=== PATIENT | female | born 1995 | race African-American/Black ===

== ENCOUNTER 2018-12-15 20:23 | Emergency (ER) | payer OTHER ==
[2018-12-15 23:03] LABS: ABS Eosinophils 0.3 10^3/ul (0-0.6); ABS Lymphocytes 2.5 10^3/ul (1.0-4.8); ABS Monocytes 0.6 10^3/ul (0-0.8); ABS Neutrophils 4.7 10^3/ul (1.5-7.7); Eosinophil % 4.1 %; Hematocrit 35 % (35-47); Hemoglobin 11.3 g/dL (12.0-16.0); Lymphocyte % 30.4 %; Mean Corpuscular HGB Conc 33 g/dL (31-36); Mean Corpuscular Hemoglobin 26 pg (27-31); Mean Corpuscular Volume 78 fL (80-97); Mean Platelet Volume 10.3 fL (7.4-10.4); Nucleated Red Blood Cells % 0.1; Platelet Count 211 10^3/uL (150-450); Red Blood Count 4.42 10^6 /uL (3.70-4.87); Red Cell Distribution Width 19 % (10-15); White Blood Count 8.2 10^3/uL (3.5-10.8)
[2018-12-16 01:04] LABS: Urine Appearance Clear; Urine Bilirubin Negative (Negative); Urine Blood Negative (Negative); Urine Color Straw; Urine Glucose Negative (Negative); Urine Ketones Negative (Negative); Urine Nitrite Negative (Negative); Urine Protein Negative (Negative); Urine Specific Gravity 1.009 (1.010-1.030); Urine Urobilinogen Negative (Negative)
--- NOTE | 2018-12-16 03:32 | ED ---
Abdominal Pain/Female - HPI Summary HPI Summary: Patient with history of positive home test complains of abdominal pain 5 days, chronic bilateral knee pain, back pain and feet swelling 2 weeks. Abdominal pain is intermittent, worse with physical activity. Denies fever, cough, sore throat, CP, SOB, N/V/D, change in urine, change in BM, vaginal discharge, vaginal pain, vaginal bleeding. LMP October 18 through October 21. . No HOUSEKEEPING SUPERVISOR, no prior ultrasound. Palm positive home test with unknown, . Medical history is none.In [place] 2 months. Abdominal surgical history 3. - History of Current Complaint Chief Complaint: EDOBProblems Stated Complaint: ABD PAIN, PER PT Time Seen by Provider: 12/16/18 00:02 Hx Obtained From: Patient Onset/Duration: Gradual Onset, Lasting Days Timing: Intermittent Episode Lasting Severity Initially: Moderate Severity Currently: Moderate Pain Intensity: 8 Pain Scale Used: 0-10 Numeric Location: Discrete At: RLQ, Discrete At: LLQ, Suprapubic Radiates: No Character: Cramping Aggravating Factor(s): Movement Alleviating Factor(s): Position Allergies/Adverse Reactions: Allergies Allergy/AdvReac Type Severity Reaction Status Date / Time No Known Allergies Allergy Verified 12/15/18 20:27 PMH/Surg Hx/FS Hx/Imm Hx Endocrine/Hematology History: Denies: Hx Anticoagulant Therapy Cardiovascular History: Denies: Hx Pacemaker/ICD History: Denies: Hx Dialysis Sensory History: Denies: Hx Eye Prosthesis Opthamlomology History: Denies: Hx Legally Blind EENT History: Denies: Hx Deafness Neurological History: Denies: Hx Developmental Delay Psychiatric History: Denies: Hx Autism Infectious Disease History: No Infectious Disease History: Denies: Traveled Outside the US in Last 30 Days - Family History Known Family History: Positive: Non-Contributory - Social History Alcohol Use: None Substance Use Type: Reports: None Smoking Status (MU): Never Smoked Tobacco Review of Systems Constitutional: Negative Eyes: Negative ENT: Negative Cardiovascular: Negative Respiratory: Negative Positive: Abdominal Pain Genitourinary: Negative Musculoskeletal: Other Skin: Negative Neurological: Negative Psychological: Normal All Other Systems Reviewed And Are Negative: Yes Physical Exam - Summary Physical Exam Summary: Mild tenderness to palpation in bilateral lower quadrants and suprapubically. Abdominal exam otherwise unremarkable. Lung sounds clear to auscultation bilaterally. RRR. No peripheral edema noted. No erythema, ecchymosis, deformity, swelling noted to bilateral lower extremities. Mild tenderness with palpation of bilateral knees. Bilateral calves soft nontender. Triage Information Reviewed: Yes Vital Signs On Initial Exam: Initial Vitals Temp Pulse Resp BP Pulse Ox 98.3 F 83 16 127/81 94 12/15/18 20:25 12/15/18 20:25 12/15/18 20:25 12/15/18 20:25 12/15/18 20:25 Vital Signs Reviewed: Yes Appearance: Positive: Well-Appearing Skin: Positive: Warm Head/Face: Positive: Normal Head/Face Inspection Eyes: Positive: Normal Neck: Positive: Supple Respiratory/Lung Sounds: Positive: Clear to Auscultation Cardiovascular: Positive: Normal Abdomen Description: Positive: Other: Musculoskeletal: Positive: Normal Neurological: Positive: Normal Psychiatric: Positive: Normal AVPU Assessment: Alert - Yadira Coma Scale Best Eye Response: 4 - Spontaneous Best Motor Response: 6 - Obeys Commands Best Verbal Response: 5 - Oriented Coma Scale Total: 15 Diagnostics - Vital Signs Vital Signs Temp Pulse Resp BP Pulse Ox 12/15/18 22:37 98.3 F 75 16 133/85 100 12/15/18 20:25 98.3 F 83 16 127/81 94 - Laboratory Lab Results: Lab Results 12/15/18 12/15/18 12/15/18 Range/Units 22:44 22:44 22:44 WBC 8.2 (3.5-10.8) 10^3/uL RBC 4.42 (3.70-4.87) 10^6 /uL Hgb 11.3 L (12.0-16.0) g/dL Hct 35 (35-47) % MCV 78 L (80-97) fL MCH 26 L (27-31) pg MCHC 33 (31-36) g/dL RDW 19 H (10-15) % Plt Count 211 (150-450) 10^3/uL MPV 10.3 (7.4-10.4) fL Neut % (Auto) 57.2 % Lymph % (Auto) 30.4 % [place] % (Auto) 7.8 % Eos % (Auto) 4.1 % Baso % (Auto) 0.5 % Absolute Neuts (auto) 4.7 (1.5-7.7) 10^3/ul Absolute Lymphs (auto) 2.5 (1.0-4.8) 10^3/ul Absolute Monos (auto) 0.6 (0-0.8) 10^3/ul Absolute Eos (auto) 0.3 (0-0.6) 10^3/ul Absolute Basos (auto) 0.0 (0-0.2) 10^3/ul Absolute Nucleated RBC 0.0 10^3/ul Nucleated RBC % 0.1 B-Natriuretic Peptide 72 (<=100) pg/mL Beta HCG, Quant 650.02 mIU/mL Urine Color Urine Appearance Urine pH (5-9) Ur Specific [place] (1.010-1.030) Urine Protein (Negative) Urine Ketones (Negative) Urine Blood (Negative) Urine Nitrate (Negative) Urine Bilirubin (Negative) Urine Urobilinogen (Negative) Ur Leukocyte Esterase (Negative) Urine Glucose (Negative) 12/16/18 Range/Units 00:55 WBC (3.5-10.8) 10^3/uL RBC (3.70-4.87) 10^6 /uL Hgb (12.0-16.0) g/dL Hct (35-47) % MCV (80-97) fL MCH (27-31) pg MCHC (31-36) g/dL RDW (10-15) % Plt Count (150-450) 10^3/uL MPV (7.4-10.4) fL Neut % (Auto) % Lymph % (Auto) % [place] % (Auto) % Eos % (Auto) % Baso % (Auto) % Absolute Neuts (auto) (1.5-7.7) 10^3/ul Absolute Lymphs (auto) (1.0-4.8) 10^3/ul Absolute Monos (auto) (0-0.8) 10^3/ul Absolute Eos (auto) (0-0.6) 10^3/ul Absolute Basos (auto) (0-0.2) 10^3/ul Absolute Nucleated RBC 10^3/ul Nucleated RBC % B-Natriuretic Peptide (<=100) pg/mL Beta HCG, Quant mIU/mL Urine Color Straw Urine Appearance Clear Urine pH 6.0 (5-9) Ur Specific [place] 1.009 L (1.010-1.030) Urine Protein Negative (Negative) Urine Ketones Negative (Negative) Urine Blood Negative (Negative) Urine Nitrate Negative (Negative) Urine Bilirubin Negative (Negative) Urine Urobilinogen Negative (Negative) Ur Leukocyte Esterase Negative (Negative) Urine Glucose Negative (Negative) Result Diagrams: 12/15/18 22:44 Lab Statement: Any lab studies that have been ordered have been reviewed, and results considered in the medical decision making process. Abdominal Pain Fem Course/Dx - Course Course Of Treatment: Patient with history of positive home test complains of abdominal pain 5 days, chronic bilateral knee pain, back pain and feet swelling 2 weeks. Abdominal pain is intermittent, worse with physical activity. Denies fever, cough, sore throat, CP, SOB, N/V/D, change in urine, change in BM, vaginal discharge, vaginal pain, vaginal bleeding. LMP October 18 through October 21. . No HOUSEKEEPING SUPERVISOR, no prior ultrasound. Palm positive home test with unknown, . Medical history is none.In [place] 2 months. Abdominal surgical history 3. Vital signs within normal limits. Labs unremarkable. HCG 650. Ultrasound positive for IUP at 5 week with no yolk sac or pole noted. Follow up with HOUSEKEEPING SUPERVISOR for . Follow-up with orthopedics for knee pain. Rx for Phenergan. Patient understands and approves of plan. - Diagnoses Provider Diagnoses: , Knee pain, bilateral Discharge - Sign-Out/Discharge Documenting (check all that apply): Patient Departure Patient Received Moderate/Deep Sedation with Procedure: No - Discharge Plan Condition: Stable Disposition: HOME Prescriptions: Promethazine TAB* [Phenergan TAB*] 25 mg PO Q8H PRN 7 Days #20 tab PRN Reason: Nausea Patient Education Materials: (ED), Knee Pain (ED) Referrals: No Primary Care Phys,NOPCP [Primary Care Provider] - Serg Winchester MD [Medical Doctor] - Johnny Allen MD [Medical Doctor] - Additional Instructions: Follow up with HOUSEKEEPING SUPERVISOR for further evaluation of . Take Tylenol for knee pain. Follow-up with orthopedics Dr. Allen for further evaluation of knee pain. Take vitamins. Return to the ED for any new or worsening symptoms. - Billing Disposition and Condition Condition: STABLE Disposition: Home
[2018-12-16 04:08] VITALS: BP 149/93
== END 2018-12-16 04:06 | disposition home or self-care (01) ==
LOC: ED 20:23
DX: O26.899 Other specified pregnancy related conditions, unspecified trimester (principal); R10.9 Unspecified abdominal pain; M25.561 Pain in right knee; M25.562 Pain in left knee; Z3A.00 Weeks of gestation of pregnancy not specified
CPT/HCPCS: 36415; 76817; 81003; 83880; 84702; 85025; 99282

== ENCOUNTER 2019-07-06 01:54 | Emergency (ER) | payer SELFPAY ==
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
[2019-07-06] MEDS ORDERED: NS 0.9% 1000 ML** 1,000 ML IV ONE (02:19)
[2019-07-06 02:52] LABS: ABS Lymphocytes 1.5 10^3/ul (1.0-4.8); ABS Monocytes 0.6 10^3/ul (0-0.8); Eosinophil % 0.3 %; Hematocrit 32 % (35-47); Lymphocyte % 14.4 %; Mean Corpuscular HGB Conc 34 g/dL (31-36); Mean Corpuscular Hemoglobin 28 pg (27-31); Mean Corpuscular Volume 81 fL (80-97); Mean Platelet Volume 9.3 fL (7.4-10.4); Platelet Count 261 10^3/uL (150-450); Red Blood Count 3.96 10^6 /uL (3.70-4.87); Red Cell Distribution Width 16 % (10-15); White Blood Count 10.2 10^3/uL (3.5-10.8)
[2019-07-06 02:57] LABS: INR 1.03 (0.82-1.09)
[2019-07-06 03:07] LABS: Albumin 3.2 g/dL (3.2-5.2); Albumin/Globulin Ratio 0.9 (1-3); BUN/Creatinine Ratio 13.5 (8-20); Calcium 8.7 mg/dL (8.6-10.3); EGFR African American 117.7 (>60); EGFR Non-African American 97.3 (>60); Globulin 3.6 g/dL (2-4); Potassium 3.9 mmol/L (3.5-5.0); Total Bilirubin 0.2 mg/dL (0.2-1.0); Total Protein 6.8 g/dL (6.4-8.9)
[2019-07-06 03:48] LABS: Urine Appearance Cloudy; Urine Bilirubin Negative (Negative); Urine Blood Negative (Negative); Urine Color Yellow; Urine Glucose Negative (Negative); Urine Ketones Negative (Negative); Urine Nitrite Negative (Negative); Urine Protein 1+(30 mg/dL) (Negative); Urine Specific Gravity 1.011 (1.010-1.030); Urine Urobilinogen Negative (Negative)
[2019-07-06 03:56] LABS: Urine Bacteria Absent (Absent); Urine Red Blood Cell Trace(0-2/hpf) (Absent); Urine Squamous Epithelial Cell Present (Absent); Urine White Blood Cell Trace(0-5/hpf) (Absent)
[2019-07-06] MEDS ORDERED: Acetaminophen TAB* 325 MG PO ONE (05:26)
[2019-07-06 05:34] VITALS: BP 119/71
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
== END 2019-07-06 05:33 | disposition home or self-care (01) ==
LOC: ED 01:54
DX: O26.893 Other specified pregnancy related conditions, third trimester (principal); R10.30 Lower abdominal pain, unspecified; B95.1 Streptococcus, group B, as the cause of diseases classified elsewhere; Z3A.33 33 weeks gestation of pregnancy; W18.39XA Other fall on same level, initial encounter; Y92.59 Other trade areas as the place of occurrence of the external cause
CPT/HCPCS: 36415; 80053; 81003; 81015; 85025; 85610; 87077; 87086; 96360; 96361; 99283; A9270-GY

== ENCOUNTER 2019-08-06 19:58 | Emergency (ER) | payer SELFPAY ==
--- NOTE | 2019-08-06 20:18 | ED ---
Medical Screening - HPI Summary HPI Summary: This pt is a 23 Y/O F presenting to [facility] with a CC of abdominal pain that is rated a 10/10 in severity. She states that the pain is persistent and has been for the last 5 days. She states that she is currently 37 weeks with a due date on 08/23/2019. She states that this is her 5th baby. She states that she has been having contractions with pressure and chest palpitations. She states that she thinks lost a little fluid after the onset. She states that the contractions/pain have been occurring less than 5 minutes apart. She has a GPA of 5,3,1. She has a PMHx of 3 C-sections. She has no alleviating or aggravating factors. - History of Current Complaint Chief Complaint: Jian Stated Complaint: L ABD PAIN/9 MONTHS PREG PER PT Time Seen by Provider: 08/06/19 20:10 Onset/Duration: Started Days Ago - 5, Still Present Severity: severe - 10/10 Associated Signs and Symptoms: Other - abdominal pain, contractions <5 minutes apart, chest palpitations, GPA (5,3,1) PMH/Surg Hx/FS Hx/Imm Hx Previously Healthy: Yes Endocrine/Hematology History: Denies: Hx Anticoagulant Therapy Cardiovascular History: Denies: Hx Pacemaker/ICD History: Denies: Hx Dialysis Sensory History: Denies: Hx Eye Prosthesis, Hx Legally Blind, Hx Deafness Opthamlomology History: Denies: Hx Eye Prosthesis, Hx Legally Blind Neurological History: Denies: Hx Developmental Delay Psychiatric History: Denies: Hx Autism - Cancer History Hx Chemotherapy: No Hx Radiation Therapy: No - Surgical History Surgical History: Yes Surgery Procedure, Year, and Place: c-sections - Immunization History Immunizations Up to Date: Yes Infectious Disease History: No Infectious Disease History: Denies: Traveled Outside the US in Last 30 Days - Family History Known Family History: Negative: Hypertension, Diabetes - Social History Occupation: Employed Part-time Lives: With Family Alcohol Use: None Hx Substance Use: No Substance Use Type: Reports: None Hx Tobacco Use: No Smoking Status (MU): Never Smoked Tobacco Review of Systems Positive: Palpitations Positive: Abdominal Pain All Other Systems Reviewed And Are Negative: Yes Physical Exam - Summary Physical Exam Summary: Constitutional: Well-developed, Well-nourished, Alert. (-) Distressed Skin: Warm, Dry HENT: Normocephalic; Atraumatic Eyes: Conjunctiva normal Neck: Musculoskeletal ROM normal neck. (-) JVD, (-) Stridor, (-) Nuchal rigidity Cardio: Rhythm regular, rate normal, Heart sounds normal; Intact distal pulses; Radial pulses are 2+ and symmetric. (-) Murmur Pulmonary/Chest wall: Effort normal. (-) Respiratory distress, (-) Wheezes, (-) Rales Abd: Soft, (-) tenderness, consistent with , (-) Guarding, (-) Rebound Musculoskeletal: (-) Edema Lymph: (-) Cervical adenopathy Neuro: Alert, Oriented x3 Psych: Mood and affect Normal Triage Information Reviewed: Yes Vital Signs On Initial Exam: Initial Vitals Temp Pulse Resp BP Pulse Ox 97.9 F 103 20 114/82 98 08/06/19 20:03 08/06/19 20:03 08/06/19 20:03 08/06/19 20:03 08/06/19 20:03 Vital Signs Reviewed: Yes Procedures - Sedation Patient Received Moderate/Deep Sedation with Procedure: No Diagnostics - Vital Signs Vital Signs Temp Pulse Resp BP Pulse Ox 08/06/19 20:03 97.9 F 103 20 114/82 98 - Laboratory Lab Statement: Any lab studies that have been ordered have been reviewed, and results considered in the medical decision making process. Course/Dx - Course Course Of Treatment: 23 y/o F at 37 weeks p/w lower abdominal pain. - VS mild tachycardia, NAD. No signs of active labor. - MSE completed w integrity engineer ipad (danish). D/w Dr. Winchester, send to OB - Diagnoses Provider Diagnoses: , Abdominal pain Discharge ED - Sign-Out/Discharge Documenting (check all that apply): Patient Departure - discharge - Discharge Plan Condition: Stable Disposition: HOME Patient Education Materials: (ED), Early Labor Signs (ED) [facility]errals: [facility] [Outside] - 2 Days Additional Instructions: Please go to OB floor. - Billing Disposition and Condition Condition: STABLE Disposition: Home - Attestation Statements Document Initiated by Scribe: Yes Documenting Scribe: Hosea Beal Provider For Whom Scribe is Documenting (Include Credential): Fred Archuleta MD Scribe Attestation: I, Hosea Beal, scribed for Fred Archuleta MD on 08/07/19 at 1014. Scribe Documentation Reviewed: Yes Provider Attestation: The documentation as recorded by the scribeHosea accurately reflects the service I personally performed and the decisions made by , Fred Archuleta MD Status of Scribe Document: Viewed
[2019-08-06 20:20] VITALS: BP 145/86
--- OUTSIDE RECORDS SUMMARY | 2019-08-06 20:20 | XMS REPORT ---
:1995 Author Organization [facility] Care Team Providers Name Role Phone SYLVAIN SPRAGUE Primary Care Physician Unavailable Allergies, Adverse Reactions, Alerts Allergy Code CodeSystem Reaction Severity Criticality Status Start Substance Date *No known unspecified Moderate Active 2019-06 allergies -28 Medications Medication Medication Medication Start Stop Route Dose Status Fill Code CodeSystem Date Date Instructions RxNorm 2019-06 oral 27 mg active Take 1 tablet Vitamin -28 iron- by mouth once 800 mcg a day as 1 tablet directed once a day Relevant diagnostic tests/laboratory data Narrative No Information Procedures Procedure Code CodeSystem Target Date of Status Service Device Device Device Name Site Procedure Delivery Code Name UID Location SNOMED-CT () 2019-07-[address], [id number] Encounters/Encounter Diagnoses Encounter Encounter Diagnosis Diagnosis Diagnosis Date of Service Name Code Code Name CodeSystem Diagnosis Delivery Location Non-Billable [address] SNOMED-CT 2019-07-21 [facility] , , Vital Signs No Information Social History Element Description Description Start End Code CodeSystem AdditionalInfo Date Date SexAssignedAtBirth Female F AdministrativeGender 10-12 Hospital Discharge Instructions Reason For Referral Medical Equipment FDA Assessments
== END 2019-08-06 20:32 | disposition home or self-care (01) ==
LOC: ED 19:58
DX: O26.893 Other specified pregnancy related conditions, third trimester (principal); Z3A.37 37 weeks gestation of pregnancy; R10.9 Unspecified abdominal pain; R00.2 Palpitations
CPT/HCPCS: 99283

== ENCOUNTER 2019-08-18 05:12 | Inpatient (IN) | payer MEDICAID ==
--- NOTE | 2019-08-17 17:08 | HP ---
General Information - Reason for Visit 23 y/o with a at 39+ weeks, Prior X 2, poor care. - General Information Maternal Age: 23 Grav: 6 Para: 2 SAB: 3 IEA: 0 Estimated Due Date: 08/20/19 Determined By: Early Ultrasound Gestational Age in Weeks/Days: 39 5/7 Maternal Blood Type and Rh: A Positive - Results this Serology/RPR Result: Non-Reactive Rubella Result: Immune HBsAg Result: Negative HIV Result: Negative Past Medical History Delivery History: Hx C/Section, See Records Pertinent Past Surgical History: See Records Pertinent Family History: See Records - Antepartal Records Antepartal Records: Reviewed, Complicated by: - Poor and sporadic prenantal care, Prior Section Review of Systems Constitutional: Comfortable CV Complaint: No Respiratory: Shortness of Breath: No Gastrointestinal: No Nausea/Vomiting, Normal Bowel Movement Genitourinary: No Dysuria, No Bleeding, No Leaking Fluid Musculoskeletal: No Complaint, No Epigastric Pain Neurological: No Headache, No Visual Changes Movement: Normal Exam Allergies/Adverse Reactions: Allergies No Known Allergies Allergy (Verified 08/16/19 14:44) Temp 98.7 P 84 BP 132/84 RR 20 - Measurements Height: 5 ft 3 in Weight: 222 lb 0.017 oz Weight in lbs: [phone] Body Mass Index (BMI): 39.3 Pre- Weight: 230 lb Weight Gained This : -7.998 lbs and -0.015 ozs - Exam Breast: Breast Exam Deferred CVA: No CVA Tenderness Extremities: No Edema Heart: Normal Rhythm/Heart Sounds HEENT: No Significant Findings Lungs: Clear Bilaterally Rectal: Rectal Exam Deferred Reflexes: DTR 2+ Thyroid: No Thyromegaly - Abdominal Exam Abdomen Exam: Non-Tender, Fundal Height Consistent with Dates - Ultrasound/Biophysical Profile Ultrasound Status: Not Done Targeted Exam Findings See L&D Outpatient Visit Provider Note for Findings: N/A Cervical Exam: Closed Effacement: 50% Station: -1 Presenting Part: Vertex Membrane Status: Intact EFM Findings - External Monitor Findings Baseline Heart Rate: 130 Contractions: None Assessment/Plan - Assessment Term , Prior X 2. - Obstetrical Risk Factors Obstetrical Risk Factors: GBS Positive, Obesity, Previous C/Section in Labor, Psychosocial Issues, Psychiatric Issues - Plan Plan: IV Hydration, Expedite C/S Delivery, Antibiotic Prophylaxis - Date/Time of Admission Date of Admission: 08/18/19 Time of Admission: 06:00
[~2019-08-18 05:12] MED LIST: Buffered Lidocaine 1% SYRIN* 1 ML/SYRINGE INTRADERM ONE; Lactated Ringers 1000 ML Bag* 1,000 ML IV SCH
--- OUTSIDE RECORDS SUMMARY | 2019-08-18 05:15 | XMS REPORT ---
:1995 Author Organization [facility] Care Team Providers Name Role Phone SYLVAIN [...] Name UID Location SNOMED-CT () 2019-07-[address], [id number] [phone] SNOMED-CT () 2019-08-[address], [address] [phone] Encounters/Encounter Diagnoses Encounter Encounter Diagnosis Diagnosis Diagnosis Date of Service Name Code Code Name CodeSystem Diagnosis Delivery Location Nursing [id number] SNOMED-CT 2019-08-05 [facility] [place] [facility] [address] [place] [address], [id number] Vital Signs No Information Social History Element Description Description Start End Code CodeSystem AdditionalInfo Date Date SexAssignedAtBirth Female F AdministrativeGender 10-12 Hospital Discharge Instructions Reason For Referral Medical Equipment FDA Assessments
[2019-08-18] MEDS ORDERED: Scopolamine 1.5 mg* PATCH TRANSDERM ONE (06:00)
[2019-08-18] MEDS ORDERED: Famotidine IV* 10 MG/ML 2 ML (20 mg) IV ONE (06:00)
[2019-08-18] MEDS ORDERED: ceFOXitin 2 GM IVPREMIX* 2 GM/50 ML BAG IVPB ONE (06:00)
[2019-08-18] MEDS ORDERED: Lactated Ringers 1000 ML Bag* 1,000 ML IV SCH ×2 (06:00→10:00)
[2019-08-18 07:25] LABS: Urine Benzodiazepine Screen None Detected (None Detect); Urine Opiates Screen None Detected (None Detect)
[2019-08-18] MEDS ORDERED: KETAMINE HCL* 50 MG/ML 10 ML VIAL ONE (07:31)
[2019-08-18] MEDS ORDERED: fentaNYL* 50 MCG/ML 2 ML VIAL (100 MCG VIAL) ONE (07:31)
[2019-08-18] MEDS ORDERED: Midazolam* 1 MG/ML 5 ML VIAL (5 MG) ONE (07:31)
[2019-08-18] MEDS ORDERED: Morphine PF AMP (0.5MG/ML)* 5 MG/10 ML AMP ONE (08:23)
[2019-08-18] MEDS ORDERED: Phenylephrine 10 MG/ML VIAL* 1 ML VIAL ONE (08:37)
[2019-08-18] MEDS ORDERED: Phenylephrine 40 MCG/ML SYRINGE ONE (08:37)
[2019-08-18] MEDS ORDERED: Ketorolac INJ* 30 MG/ML 1 ML VIAL ONE (08:38)
[2019-08-18] MEDS ORDERED: PROCHLORPERAZINE INJ 5 MG/ML 2 ML VIAL ONE (08:38)
[2019-08-18] MEDS ORDERED: Dexamethasone IV* 4 MG/ML 1 ML (4 MG) ONE (08:38)
[2019-08-18] MEDS ORDERED: EPHEDrine (Pressors)* 50 MG/ML VIAL ONE (08:38)
[2019-08-18] MEDS ORDERED: Ondansetron INJ* 2 MG/ML VIAL ONE (08:38)
[2019-08-18] MEDS ORDERED: oxyCODONE/Acetamin 5/325 MG* TAB PO PRN (08:50)
[2019-08-18] MEDS ORDERED: Naloxone* 0.4 MG/ML 1 ML VIAL IV PRN ×2 (08:50→08:56)
[2019-08-18] MEDS ORDERED: PROCHLORPERAZINE INJ 5 MG/ML 2 ML VIAL IV PRN (08:50)
[2019-08-18] MEDS ORDERED: Ondansetron INJ* 2 MG/ML VIAL IV PRN (08:50)
[2019-08-18] MEDS ORDERED: DiMENhydriNATE IV* 50 MG/ML VIAL IV PUSH PRN (08:50)
[2019-08-18] MEDS ORDERED: fentaNYL* 50 MCG/ML 2 ML VIAL (100 MCG VIAL) IV PRN (08:56)
[2019-08-18] MEDS ORDERED: Glycerin ADULT SUPP PR PRN (09:59)
[2019-08-18] MEDS ORDERED: Witch Hazel PAD* JAR TOPICAL PRN (09:59)
[2019-08-18] MEDS ORDERED: Zolpidem TAB* 5 MG PO PRN (09:59)
[2019-08-18] MEDS ORDERED: Dibucaine 1% 28.35 GM TUBE PR PRN (09:59)
[2019-08-18] MEDS: Simethicone TAB* 80 MG TAB.CHEW PO SCH ×3 (13:27→21:55)
[2019-08-18] MEDS: Docusate CAP* 100 MG PO SCH ×2 (13:27→21:55)
[2019-08-18] MEDS: Ketorolac INJ* 30 MG/ML 1 ML VIAL IV PRN (16:39)
[2019-08-19] MEDS: Ketorolac INJ* 30 MG/ML 1 ML VIAL IV PRN (00:04)
[2019-08-19] MEDS ORDERED: oxyCODONE TAB* 5 MG TAB PO PRN (00:26)
--- NOTE | 2019-08-19 03:35 | OP ---
CC: Dr. Agus Stein * DATE OF OPERATION: 08/18/19 - ROOM #117 DATE OF : 89 SURGEON: Lam Garcia MD FLASH DESIGNER: Dr. gAus Stein ANESTHESIA: Spinal. PRE-OP DIAGNOSIS: at 39 weeks with a prior section x2. POST-OP DIAGNOSIS: at 39 weeks with a prior section x2. OPERATIVE PROCEDURE: Repeat low transverse section. ESTIMATED BLOOD LOSS: 600 cc. SPECIMENS SENT TO PATHOLOGY: Cord blood. FLUIDS: She received 2300 cc of IV crystalloid fluid. URINE OUTPUT: Clear. FINDINGS: Delivery of a female infant with a nuchal cord x2 with a weight of 6 pounds and 5 ounces, Apgars of 8 and 9 over clear fluid. The uterus was noted to be missing the left fallopian tube. There was also a window at the left lateral broad ligament through which bowel was noted to herniate through. There was a normal left ovary, normal right tube and ovary, normal bowel and normal bladder. There were no complications. DESCRIPTION OF PROCEDURE: The patient was taken to the operating room where she was identified. She was placed on the operating table where a spinal anesthetic was obtained without difficulty. She was then placed in a supine position with a leftward tilt, prepped and draped in normal sterile fashion. A Pfannenstiel skin incision was then made with a knife and carried through to the underlying layer of fascia. The fascia was then nicked in the midline and extended laterally with curved Muñiz scissors. The fascia was then extended superiorly and inferiorly with Adams clamps, dissected out sharply from the rectus muscle and the rectus muscles were in the midline bluntly. The peritoneum was identified, grasped with pickups, entered sharply with Metzenbaum scissors, and extended superiorly and inferiorly sharply. A bladder blade was inserted into the patient's abdomen. A low uterine transverse incision was made with a knife and extended laterally with bandage scissors. The amniotic sac was ruptured. The 's head was then grasped and delivered atraumatically. A nuchal cord x2 was then reduced. The rest of the 's body was then delivered. The cord was clamped and cut, and the was handed off to awaiting cake puller. Cord bloods were obtained. The placenta was removed manually. The uterus was then exteriorized, cleared of all clot and debris using moist laparotomy sponges. The uterine incision was then closed using 0 Polysorb suture in a running locked fashion with a second imbricating layer of 0 Polysorb suture with good hemostasis noted. At this point, a window was noted at the left broad ligament just below the round ligament. Through this window, we noted that the bowel would herniate through, therefore, I appreciated to close this window using a 3-0 Polysorb suture in a running fashion without incident. The uterus was then returned to the patient' s abdomen. The gutters were then cleared of all clot and debris using moist laparotomy sponges. All the sponges and instruments were removed from the patient's abdomen. The peritoneum was then closed using 3-0 Polysorb suture in a running fashion. The fascia was closed using 0 Polysorb suture in a running fashion and the skin was closed using a 4-0 Monocryl subcuticular stitch. The patient tolerated the procedure well. Sponge, lap, and needle counts were correct x2. She was then transferred to the recovery area in stable condition. [id number]/[facility] #: [id number] BRIAN
[2019-08-19] MEDS: oxyCODONE TAB* 5 MG TAB PO PRN ×4 (04:01→20:04)
[2019-08-19 09:00] LABS: ABS Lymphocytes 2.1 10^3/ul (1.0-4.8); ABS Monocytes 0.8 10^3/ul (0-0.8); ABS Neutrophils 7.9 10^3/ul (1.5-7.7); Eosinophil % 0.4 %; Hematocrit 28 % (35-47); Hemoglobin 9.2 g/dL (12.0-16.0); Lymphocyte % 19.5 %; Mean Corpuscular HGB Conc 33 g/dL (31-36); Mean Corpuscular Hemoglobin 26 pg (27-31); Mean Corpuscular Volume 77 fL (80-97); Mean Platelet Volume 8.8 fL (7.4-10.4); Nucleated Red Blood Cells % 0.1; Platelet Count 204 10^3/uL (150-450); Red Blood Count 3.61 10^6 /uL (3.70-4.87); Red Cell Distribution Width 16 % (10-15); White Blood Count 10.9 10^3/uL (3.5-10.8)
[2019-08-19] MEDS ORDERED: Tetan/Diph/Pertus SYR(Tdap)* 0.5 ML SYR(BOOSTRIX) use SYR contains LATEX IM ONE (09:00)
[2019-08-19] MEDS: Simethicone TAB* 80 MG TAB.CHEW PO SCH ×4 (09:23→20:05)
[2019-08-19] MEDS: Docusate CAP* 100 MG PO SCH ×3 (09:23→20:05)
[2019-08-19] MEDS: Ferrous Gluconate TAB* 324 MG TAB PO SCH ×2 (09:23→20:05)
[2019-08-19] MEDS: Ibuprofen TAB* 600 MG PO PRN ×2 (09:29→16:05)
[2019-08-19] MEDS ORDERED: Acetaminophen TAB* 325 MG PO PRN (09:59)
[2019-08-20] MEDS: Ibuprofen TAB* 600 MG PO PRN ×4 (00:24→20:42)
[2019-08-20] MEDS: oxyCODONE TAB* 5 MG TAB PO PRN ×2 (04:15→08:06)
[2019-08-20] MEDS: Simethicone TAB* 80 MG TAB.CHEW PO SCH ×4 (08:07→20:42)
[2019-08-20] MEDS: Docusate CAP* 100 MG PO SCH ×3 (08:07→20:42)
[2019-08-20] MEDS: Ferrous Gluconate TAB* 324 MG TAB PO SCH ×2 (08:07→20:42)
[2019-08-21] MEDS: Ibuprofen TAB* 600 MG PO PRN ×3 (04:06→16:16)
[2019-08-21] MEDS ORDERED: Scopolamine PATCH Remove* 1 NOTE MISC PATCH OFF ONE (06:00)
[2019-08-21] MEDS: Ferrous Gluconate TAB* 324 MG TAB PO SCH (09:17)
[2019-08-21] MEDS: Simethicone TAB* 80 MG TAB.CHEW PO SCH ×2 (09:17→12:44)
[2019-08-21] MEDS: Docusate CAP* 100 MG PO SCH ×2 (09:17→16:02)
[2019-08-21 09:26] VITALS: BP 137/77
== END 2019-08-21 16:34 | disposition home or self-care (01) | DRG 540 ==
LOC: MCHOB 05:12
PROVIDERS: ADMIT Obstetrics & Gynecology; ATTEND Obstetrics & Gynecology
PROC: 10D00Z1 Extraction of Products of Conception, Low, Open Approach (ICD-10-PCS; principal; 2019-08-18 07:45)
DX: O34.211 Maternal care for low transverse scar from previous cesarean delivery (principal); O69.81X0 Labor and delivery complicated by cord around neck, without compression, not applicable or unspecified; O99.824 Streptococcus B carrier state complicating childbirth; O99.214 Obesity complicating childbirth; O99.344 Other mental disorders complicating childbirth; F99 Mental disorder, not otherwise specified; O90.81 Anemia of the puerperium; D64.9 Anemia, unspecified; Z3A.39 39 weeks gestation of pregnancy; Z37.0 Single live birth
CPT/HCPCS: 36415; 80307; 85025; 90715; A9270-GY; G0480; J0694; J0780; J1100; J1885; J2250; J2405; J3010

== ENCOUNTER 2021-05-12 08:57 | Inpatient (IN) ==
[2021-05-12] MEDS ORDERED: ceFOXitin 2 GM PREMIX 50 ML IVPB ONE (09:30)
[2021-05-12] MEDS ORDERED: Buffered Lidocaine 1% SYRIN 1 ml INTRADERM ONE ×2 (09:40→09:59)
[2021-05-12] MEDS: Lactated Ringers 1000 ml BAG 1,000 ML IV SCH ×2 (09:47→11:58)
[2021-05-12] MEDS ORDERED: Sodium Citrate/Citric Acid LIQ 15 ML UDC PO ONE (09:59)
[2021-05-12 10:14] LABS: ABS Eosinophils 0.1 10^3/ul (0-0.6); ABS Lymphocytes 1.7 10^3/ul (1.0-4.8); ABS Monocytes 0.7 10^3/ul (0-0.8); ABS Neutrophils 5.9 10^3/ul (1.5-7.7); Hematocrit 35 % (35-47); Hemoglobin 11.6 g/dL (12.0-16.0); Lymphocyte % 20.2 %; Mean Corpuscular HGB Conc 34 g/dL (31-36); Mean Corpuscular Hemoglobin 27 pg (27-31); Mean Corpuscular Volume 81 fL (80-97); Mean Platelet Volume 9.1 fL (7.4-10.4); Platelet Count 277 10^3/uL (150-450); Red Blood Count 4.27 10^6 /uL (3.70-4.87); Red Cell Distribution Width 22 % (10-15); White Blood Count 8.4 10^3/uL (3.5-10.8)
[2021-05-12] MEDS ORDERED: Morphine PF AMP (0.5MG/ML) 5 MG/10 ML AMP ONE (13:08)
[2021-05-12] MEDS ORDERED: Oxytocin 10 UNITS/ML 1 ML VIAL ONE (13:08)
[2021-05-12] MEDS ORDERED: Bupivacaine 0.5% SDV PF 30ML VIAL ONE (13:09)
[2021-05-12] MEDS ORDERED: Ondansetron 4 mg VIAL 2 MG/ML 2 ml VIAL ONE (13:49)
[2021-05-12] MEDS ORDERED: Dexamethasone IV 4 MG/ML VIAL 1 ml VIAL ONE (13:49)
[2021-05-12] MEDS ORDERED: Naloxone 0.4 mg VIAL 0.4 mg/ml 1 ml VIAL IV PRN ×2 (13:53→13:54)
[2021-05-12] MEDS ORDERED: fentaNYL 100 mcg/2 ml 50 MCG/ML VIAL IV PRN (13:53)
[2021-05-12] MEDS ORDERED: DiMENhydriNATE IV 50 mg/ml 1 ml VIAL IV PUSH PRN (13:54)
[2021-05-12] MEDS ORDERED: diPHENhydraMINE IV 50 MG/ML 1 ml VIAL (BENADRYL) IV PRN (13:54)
[2021-05-12] MEDS ORDERED: Ondansetron 4 mg VIAL 2 MG/ML 2 ml VIAL IV PRN (13:54)
[2021-05-12] MEDS ORDERED: Phenylephrine 40 mcg/mL 10mL (400mcg) SYRINGE ONE (14:07)
[2021-05-12] MEDS ORDERED: Glycerin ADULT 2.4 gm SUPP PR PRN (14:48)
[2021-05-12] MEDS ORDERED: Witch Hazel PAD JAR TOPICAL PRN (14:48)
[2021-05-12] MEDS ORDERED: Lactated Ringers 1000 ml BAG 1,000 ML IV SCH (15:00)
[2021-05-12] MEDS: oxyCODONE/Acetamin 5/325 mg TAB PO PRN (16:39)
[2021-05-13] MEDS: oxyCODONE/Acetamin 5/325 mg TAB PO PRN (06:15)
[2021-05-13 06:33] LABS: ABS Lymphocytes 1.9 10^3/ul (1.0-4.8); ABS Monocytes 1.2 10^3/ul (0-0.8); ABS Neutrophils 8.4 10^3/ul (1.5-7.7); Eosinophil % 0.3 %; Hematocrit 32 % (35-47); Hemoglobin 10.9 g/dL (12.0-16.0); Lymphocyte % 16.1 %; Mean Corpuscular HGB Conc 34 g/dL (31-36); Mean Corpuscular Hemoglobin 28 pg (27-31); Mean Corpuscular Volume 81 fL (80-97); Mean Platelet Volume 9.4 fL (7.4-10.4); Platelet Count 229 10^3/uL (150-450); Red Blood Count 3.95 10^6 /uL (3.70-4.87); Red Cell Distribution Width 22 % (10-15); White Blood Count 11.5 10^3/uL (3.5-10.8)
[2021-05-13 14:55] LABS: Urine Benzodiazepine Screen None Detected (None Detect); Urine Opiates Screen None Detected (None Detect)
[2021-05-13 15:50] LABS: Urine Appearance Clear; Urine Bilirubin Negative (Negative); Urine Blood Negative (Negative); Urine Color Yellow; Urine Glucose Negative (Negative); Urine Ketones Trace (Negative); Urine Nitrite Negative (Negative); Urine Protein Negative (Negative); Urine Specific Gravity 1.017 (1.002-1.030); Urine Urobilinogen Negative (Negative)
[2021-05-15 09:42] VITALS: BP 122/82
== END 2021-05-15 16:34 | disposition home or self-care (01) | DRG 540 ==
LOC: MCHOB 08:57
PROVIDERS: ADMIT Obstetrics & Gynecology; ATTEND Obstetrics & Gynecology